=== PATIENT | male | born 2000 | race Caucasian/White ===

== ENCOUNTER 2020-04-01 08:59 | Emergency (ER) | payer OTHER ==
[2020-04-01] MEDS ORDERED: LIDOCAINE 1% MPF 30 ML VIAL ONE (09:29)
[2020-04-01 10:08] VITALS: BP 124/82; TEMP 98.8; O2SAT 99
--- NOTE | 2020-04-03 17:49 | EDPHYS ---
Physician Documentation [facility] Name: Mike Montero Age: 19 yrs Sex: Male : 2000 Arrival Date: 04/01/2020 Time: 09:03 Bed 8 Private MD: ED Physician Burak Cruz HPI: 04/01 09:35 This 19 yrs old Male presents to ER via Ambulatory with complaints of Finger jr8 Injury, Toe Injury. 09:35 Onset: The symptoms/episode began/occurred acutely, 5 day(s) ago. The patient has not jr8 experienced similar symptoms in the past. The patient has not recently seen a physician. Patient stated that he had been working outside a lot. Had stubbed his left 4th toe and also has infection to third digit left hand. Historical: - Allergies: 09:17 No Known Allergies; ch - Home Meds: : None [Active]; ch - PMHx: :17 None; ch - PSHx: 09:17 Tonsillectomy; ch - Immunization history:: Adult Immunizations up to date. - Social history:: Smoking status: Patient reports the use of cigarette tobacco products, denies chronic smoking, but will smoke occasionally, Patient uses alcohol, on a daily basis. Patient/guardian denies using street drugs. ROS: 09:35 Constitutional: Negative for fever, chills, and weight loss. jr8 09:35 MS/extremity: Positive for erythema, pain, tenderness, of the left fourth toe and dorsal aspect of distal phalanx of right middle finger. Exam: 09:35 Constitutional: This is a well developed, well nourished patient who is awake, alert, jr8 and in no acute distress. Cardiovascular: Regular rate and rhythm with a normal S1 and S2. No gallops, murmurs, or rubs. Normal PMI, no JVD. No pulse deficits. Respiratory: Lungs have equal breath sounds bilaterally, clear to auscultation and percussion. No rales, rhonchi or wheezes noted. No increased work of breathing, no retractions or nasal flaring. Abdomen/GI: Soft, non-tender, with normal bowel sounds. No distension or tympany. No guarding or rebound. No evidence of tenderness throughout. Skin: Warm, dry with normal turgor. Normal color with no rashes, no lesions, and no evidence of cellulitis. Neuro: Awake and alert, GCS 15, oriented to person, place, time, and situation. Cranial nerves II-XII grossly intact. Motor strength 5/5 in all extremities. Sensory grossly intact. Cerebellar exam normal. Normal gait. 09:35 Musculoskeletal/extremity: Extremities: grossly normal except: noted in the left fourth toe: Has subungual hematoma present with some mild erythema and crusting around cuticle region , noted in the dorsal aspect of distal phalanx of right middle finger: Patient has paronychia present with moderate swelling and exudate noted under skin. Mild erythema surrounds it , ROM: intact in all extremities, Circulation is intact in all extremities. Sensation intact. Vital Signs: 09:13 BP 124 / 82; Pulse 94; Resp 14; Temp 98.8; Pulse Ox 99% on R/A; Weight 99.79 kg; Height ch 6 ft. 1 in. (185.42 cm); Pain 4/10; 09:13 Body Mass Index 29.03 (99.79 kg, 185.42 cm) Procedures: 09:39 Nerve block: (digital) of dorsal aspect of proximal phalanx of right middle finger jr8 Medication: Lidocaine 1% without epinephrine Amount: 4 mls were injected, Effect: the patient has resolution of the pain, Set up for procedure. Performed by Leroy RAYGOZA Patient tolerated well. 09:50 I \T\ D: Incision and drainage was performed for an abscess of the right dorsal aspect of jr8 distal phalanx of right middle finger Prepped with Betadine, Anesthetized with 4 ml's 1% Lidocaine. Drained small amount purulent fluid. serosanguinous fluid. Abscess cavity explored. Dressing: sterile 4x4 gauze, the patient tolerated the procedure well. MDM: 09:25 Patient medically screened. jr8 09:50 Data reviewed: vital signs, nurses notes, and as a result, I will discharge patient. jr8 Data interpreted: Pulse oximetry: on room air is 99 %. Interpretation: normal. Counseling: I had a detailed discussion with the patient and/or guardian regarding: the historical points, exam findings, and any diagnostic results supporting the discharge/admit diagnosis, the need for outpatient follow up, a family practitioner, to return to the emergency department if symptoms worsen or persist or if there are any questions or concerns that arise at home. Administered Medications: No medications were administered Disposition: 15:33 Co-signature as Attending Physician, Burak Cruz MD I agree with the assessment and kdr plan of care. Disposition: 04/01/20 09:52 Discharged to Home. Impression: Paronychia . - Condition is Stable. - Discharge Instructions: Paronychia. - Prescriptions for Bactrim DS 800- 160 mg Oral Tablet - take 1 tablet by ORAL route every 12 hours for 10 days; 20 tablet. - Medication Reconciliation Form, Thank You Letter, Antibiotic Education, Prescription Opioid Use form. - Follow up: Private Physician; When: 5 - 6 days; Reason: Wound Recheck, Recheck today's complaints, Continuance of care, Re-evaluation by your physician. - Problem is new. - Symptoms have improved. Signatures: Silvina Carballo RN RN Burak Cruz MD MD [facility] Alia Bolaños RN RN ss Leroy Downey PA PA jr8 Corrections: (The following items were deleted from the chart) 10:02 09:52 04/01/2020 09:52 Discharged to Home. Impression: Paronychia . Condition is ss Stable. Forms are Medication Reconciliation Form, Thank You Letter, Antibiotic Education, Prescription Opioid Use. Follow up: Private Physician; When: 5 - 6 days; Reason: Wound Recheck, Recheck today's complaints, Continuance of care, Re-evaluation by your physician. Problem is new. Symptoms have improved. jr8
--- NOTE | 2020-04-03 17:49 | ER ---
Nurse's Notes [facility] Name: Mike Montero Age: 19 yrs Sex: Male : 2000 Arrival Date: 04/01/2020 Time: 09:03 Bed 8 Private MD: Diagnosis: Paronychia Presentation: 04/01 09:13 Chief complaint: Patient states: pain to R middle finger with yellow pocket, and pain ch to L fourth toe after kicking a cinder block. states happened 5-6 days ago. Coronavirus screen: Proceed with normal triage. Patient denies a cough. Patient denies shortness of breath or difficulty breathing. Patient denies measured and/or subjective temperature greater than 100.4F prior to today's visit. Patient denies travel on a cruise ship or to a country the [facility] currently lists as an affected area. Patient denies contact with known and/or suspected case of COVID-19. Ebola Screen: Patient negative for fever greater than or equal to 101.5 degrees Fahrenheit, and additional compatible Ebola Virus Disease symptoms Patient denies exposure to infectious person. Patient denies travel to an Ebola-affected area in the 21 days before illness onset. No symptoms or risks identified at this time. Initial Sepsis Screen: Does the patient meet any 2 criteria? No. Patient's initial sepsis screen is negative. Does the patient have a suspected source of infection? Yes: Skin breakdown/wound Other: pt has area of infection around R third finger. appears localized. Risk Assessment: Do you want to hurt yourself or someone else? Patient reports no desire to harm self or others. Onset of symptoms was March 27, 2020. 09:13 Method Of Arrival: Ambulatory 09:13 Acuity: MOISE 4 ch Triage Assessment: 09:17 General: Appears in no apparent distress. comfortable, Behavior is calm, cooperative, ch appropriate for age. Pain: Complains of pain in dorsal aspect of distal phalanx of right middle finger, left fourth toe and Left fourth toenail Pain currently is 4 out of 10 on a pain scale. Neuro: No deficits noted. Musculoskeletal: Circulation, motion, and sensation intact. Capillary refill < 3 seconds, in bilateral fingers. toes. Range of motion: intact in all extremities. Injury Description: pt has stubbed R toe, abrasion to L fourth toe. pt is ambulatory, gait steady. pt has yellow pocket of puss to R middle finger around nail. Historical: - Allergies: 09: No Known Allergies; ch - Home Meds: 09: None [Active]; ch - PMHx: 09: None; ch - PSHx: 09:17 Tonsillectomy; ch - Immunization history:: Adult Immunizations up to date. - Social history:: Smoking status: Patient reports the use of cigarette tobacco products, denies chronic smoking, but will smoke occasionally, Patient uses alcohol, on a daily basis. Patient/guardian denies using street drugs. Screenin: Abuse screen: Denies threats or abuse. Denies injuries from another. Nutritional sv screening: No deficits noted. Tuberculosis screening: No symptoms or risk factors identified. Fall Risk None identified. Assessment: : Reassessment: Leroy RAYGOZA at the bedside. sv Vital Signs: 09:13 BP 124 / 82; Pulse 94; Resp 14; Temp 98.8; Pulse Ox 99% on R/A; Weight 99.79 kg; Height 6 ft. 1 in. (185.42 cm); Pain 4/10; 09:13 Body Mass Index 29.03 (99.79 kg, 185.42 cm) ED Course: 09:03 Patient arrived in ED. ag5 09:06 Silvina Carballo, SONNY is Primary Nurse. 09:06 Leroy Downey PA is PHCP. jr8 09:06 Burak Cruz MD is Attending Physician. jr8 09:16 Triage completed. 09:17 Arm band placed on left wrist. Patient placed in an exam room, on a stretcher. 09:28 Patient has correct armband on for positive identification. Bed in low position. Call sv light in reach. Pulse ox on. NIBP on. Door closed. Head of bed elevated. 10:01 No provider procedures requiring assistance completed. Patient did not have IV access ss during this emergency room visit. Wound care: located on dorsal aspect of distal phalanx of right middle finger was cleaned with Betadine, dressed with Neosporin, 4X4s, Kerlix. Administered Medications: No medications were administered Outcome: :52 Discharge ordered by . jr8 10:01 Discharged to home ambulatory. ss 10:01 Condition: good 10:01 Discharge instructions given to patient, Instructed on discharge instructions, follow up and referral plans. medication usage, Demonstrated understanding of instructions, follow-up care, medications, Prescriptions given X 1. 10:02 Patient left the ED. Signatures: Silvina Carballo, RN RN Jesica Joshi RN RN sv Smirch, Shelby, RN RN ss Roszak, Josh, PA PA [facility] Lynn Montes [facility]
== END 2020-04-01 10:02 | disposition home or self-care (01) ==
LOC: ER 08:59
PROC: 0H9FXZZ Drainage of Right Hand Skin, External Approach (ICD-10-PCS; principal; 2020-04-01)
DX: L03.011 Cellulitis of right finger (principal); Z72.0 Tobacco use
CPT/HCPCS: 64450; 99283